=== PATIENT | female | born 1935 ===

== ENCOUNTER 2019-11-18 17:31 | Inpatient (IN) | payer MEDICARE, BC ==
[~2019-11-18] VITALS: Ht 167.6 cm; Wt 84.1 kg
[2019-11-18] VITALS (9 sets, daily range): BP systolic 155–210; BP diastolic 69–96
[2019-11-18] MEDS ORDERED: CARBIDOPA/LEVODOPA PO (18:15)
[2019-11-18] MEDS ORDERED: DONEPEZIL HCL10 MG PO (18:15)
[2019-11-18] MEDS ORDERED: RASAGILINE MESYL1 MG PO (18:16)
[2019-11-18] MEDS ORDERED: SENNA LAX8.6 M1 PO (18:17)
[2019-11-18 21:09] LABS: URINE APPEARANCE HAZY; URINE BILIRUBIN NEGATIVE (NEGATIVE); URINE BLOOD TRACE (NEGATIVE); URINE COLOR YELLOW; URINE GLUCOSE NEGATIVE (NEGATIVE); URINE KETONE NEGATIVE (NEGATIVE); URINE NITRATE NEGATIVE (NEGATIVE); URINE PROTEIN(semi-quant) TRACE mg/dL (NEGATIVE); URINE UROBILINOGEN NORMAL (NORMAL)
[2019-11-18 21:10] LABS: URINE LEUKOCYTE ESTERASE TRACE (NEGATIVE)
[2019-11-18] MEDS ORDERED: ROPINIROLE2 MG PO (21:34)
[2019-11-18] MEDS ORDERED: MEMANTINE HCL E28 MG PO (21:36)
[2019-11-18] MEDS ORDERED: PANTOPRAZOLE SO40 MG PO (21:37)
[2019-11-18] MEDS ORDERED: CLOPIDOGREL75 M2 PO (21:38)
[2019-11-18] MEDS ORDERED: LOSARTAN POTASS50 M1 PO (21:38)
[2019-11-18] MEDS ORDERED: GABAPENTIN100 MG PO (21:49)
[2019-11-18] MEDS ORDERED: LEADER C 250 MG1 TAB PO (21:54)
[2019-11-18] MEDS ORDERED: VITAMIN D3100000 IU/ PO (21:56)
[2019-11-18] MEDS ORDERED: FERROUS GLUCON324 M2 PO (21:59)
[2019-11-19 02:19] VITALS: BP 189/89
[2019-11-19 05:57] VITALS: BP 169/72
[2019-11-19 05:59] LABS: EOS % 0.8 % (1.0-5.0); HEMATOCRIT 34.7 % (37.0-47.0); HEMOGLOBIN 10.6 g/dL (12.5-16.0); LYMPH# 0.9 (1.50-4.00); MEAN CELL VOLUME 98 fl (78-100); MEAN CORPUSCULAR HEMOGLOBIN 30 pg (27-31); MEAN CORPUSCULAR HGB CONC 31 g/dL (33-37); MEAN PLATELET VOLUME 9.6 fl (7.4-10.4); MONO # 0.5 (0.20-0.80); NEU # 3.8 (1.40-6.50); PLATELET COUNT 196 K/mm3 (130-400); RED BLOOD COUNT 3.56 M/mm3 (4.10-5.30); RED CELL DISTRIBUTION WIDTH 14.9 % (11.5-14.5); WHITE BLOOD COUNT 5.3 K/mm3 (4.8-10.8)
[2019-11-19 06:17] LABS: POTASSIUM 3.3 mmol/L (3.5-5.1)
[2019-11-19 06:18] LABS: CALCIUM 8.4 mg/dL (8.3-10.5)
[2019-11-19 10:20] VITALS: BP 186/80
[2019-11-19 14:20] VITALS: BP 183/74
[2019-11-19 17:03] VITALS: BP 197/73
[2019-11-19 21:43] VITALS: BP 189/76
[2019-11-20 02:00] VITALS: BP 170/96
[2019-11-20 06:02] LABS: POTASSIUM 3.8 mmol/L (3.5-5.1)
[2019-11-20 06:03] LABS: CALCIUM 8.8 mg/dL (8.3-10.5)
[2019-11-20 06:25] VITALS: BP 196/78
[2019-11-20 09:21] VITALS: BP 181/77
[2019-11-20] MEDS ORDERED: ZYLOPRIM 100MG100 MG PO (10:32)
[2019-11-20] MEDS ORDERED: ACETAMINOPHEN-H1 TA2 PO (10:32)
[2019-11-20] MEDS ORDERED: LORAZEPAM0.5 M1 PO (10:32)
[2019-11-20] MEDS ORDERED: BUMEX 1MG TA1 MG/TA1 PO (10:33)
[2019-11-20 13:47] VITALS: BP 164/76
[2019-11-20 17:32] VITALS: BP 170/76
[2019-11-20 21:23] VITALS: BP 154/80
[2019-11-21 02:00] VITALS: BP 166/67
[2019-11-21 06:13] VITALS: BP 148/72
[2019-11-21 10:02] VITALS: BP 152/72
[2019-11-21 13:50] VITALS: BP 161/76
[2019-11-21 17:10] VITALS: BP 170/78
[2019-11-21 22:02] VITALS: BP 148/69
[2019-11-22 01:40] VITALS: BP 166/71
[2019-11-22 06:11] VITALS: BP 146/73
[2019-11-22 10:47] VITALS: BP 121/72
[2019-11-22] MEDS ORDERED: ELIQUIS2.5 MG PO (12:57)
[2019-11-22] MEDS ORDERED: AMLODIPINE BESYL5 MG PO (12:59)
[2019-11-22 13:27] VITALS: BP 120/65
== END 2019-11-22 14:20 | disposition home health service (06) | DRG 305 ==
LOC: MED/SURG 17:31
PROVIDERS: Internal Medicine; Physician Assistant; ADMIT Nurse Practitioner Family
DX: I16.1 Hypertensive emergency (principal); I27.82 Chronic pulmonary embolism; N39.0 Urinary tract infection, site not specified; G20 Parkinson's disease; K44.9 Diaphragmatic hernia without obstruction or gangrene; N18.3 Chronic kidney disease, stage 3 (moderate); E11.22 Type 2 diabetes mellitus with diabetic chronic kidney disease; E11.51 Type 2 diabetes mellitus with diabetic peripheral angiopathy without gangrene; E11.42 Type 2 diabetes mellitus with diabetic polyneuropathy; I12.9 Hypertensive chronic kidney disease with stage 1 through stage 4 chronic kidney disease, or unspecified chronic kidney disease; G62.9 Polyneuropathy, unspecified; M94.0 Chondrocostal junction syndrome [Tietze]; E86.0 Dehydration; M19.90 Unspecified osteoarthritis, unspecified site; H40.9 Unspecified glaucoma; R51 Headache; I45.10 Unspecified right bundle-branch block; Z86.718 Personal history of other venous thrombosis and embolism; Z87.891 Personal history of nicotine dependence; Z90.710 Acquired absence of both cervix and uterus; Z88.0 Allergy status to penicillin
CPT/HCPCS: A4216; A9585; J0696; J1650; J1940; J2060; J3360; J7030